=== PATIENT | male | born 1990 | race Two or more races ===

== ENCOUNTER 2016-12-20 21:39 | Emergency (ER) | payer SELFPAY ==
--- NOTE | ~2016-12-20 | EKG ---
PATIENT: VIVEK PRITCHETTER UNIT #: [id number] Ventricular Rate: 98 BPM Atrial Rate: 98 BPM P-R Interval: 152 ms QRS Duration: 74 ms Q-T Interval: 342 ms QTC Calculation(Bezet): 436 ms P Monroe: 66 degrees Calculated R Monroe: 57 degrees Calculated T Monroe: 35 degrees Diagnosis Line: Normal sinus rhythm Diagnosis Line: Normal ECG Diagnosis Line: No previous ECGs available Diagnosis Line: Confirmed by ANTWON VELOZ MD ([id number]) on Diagnosis Line: 12/21/2016 9:05:02 AM INTERPRETING MD: MAGDIEL RODRIGUEZ
--- NOTE | ~2016-12-20 | CR72 ---
[facility] A Service of [facility] [place] RADIOLOGY TEXT RESULTS PATIENT: SHANI PRITCHETT LOCATION: [facility] : 86 UNIT #: [id number] AGE: [address]: Galindo Jordan MD SEX: M ORDER DR: [id number] [facility] [address] [place], [place] [address] [id number] E MR#: [id number] Acc #: [id number] NAME: SHANI PRITCHETT : 1990 SEX: M STUDY DATE/TIME: 12/20/2016 22:34 UNIT: [facility] ROOM: STUDY DESCRIPTION: CR Chest Single View Portable Attending Physician: Galindo Jordan M.D. Ordering Physician: Galindo Jordan M.D. Primary Care Physician: Primary Care Physician No MEDICAL IMAGING REPORT This report is preliminary unless electronic signature is present EXAM Chest x-ray single portable frontal view HISTORY Shortness of air with activity, weakness, history of diabetes. Current symptoms started 12/19/2016. Patient also has a history of hypertension. COMMENT Single frontal portable view of the chest timed 22:34 12/20/2016 is reviewed. There is no acute appearing parenchymal infiltrate or acute congestive failure. The heart size is normal. No pleural effusion or pneumothorax. IMPRESSION No active disease. Dictated by... Amita Steward M.D. THIS IS AN ELECTRONICALLY VERIFIED REPORT Amita Steward M.D. at 12/21/2016 10:38 AM EDIE/glenny TD: 12/21/2016 07:10 JOB #: [id number] MEDICAL IMAGING REPORT Page 1 of 1 COPY
[~2016-12-20 21:39] MED LIST: LEVEMIR100 UNITS/ SUBQ; METFORMIN HCL500 M1 PO; NOVOLOG100 U/ML SUBQ; PRILOSEC20 MG PO
[2016-12-20 22:40] LABS: BASOPHIL% 0.2 % (0-2.5); EOSINOPHIL# 0.1 X10e3 (0-0.7); HEMATOCRIT 45.3 % (38.0-50.0); HEMOGLOBIN 15.5 gm/dL (13.0-16.0); LYMPHOCYTE# 4.4 X10e3 (1.0-3.5); LYMPHOCYTE% 39.3 % (17.0-45.0); MEAN CELL VOLUME 82.9 FL (83-96); MEAN CORPUSCULAR HEMOGLOBIN 28.4 PG (28-34); MEAN CORPUSCULAR HGB CONC 34.2 g/dL (30-36); MEAN PLATELET VOLUME 9.1 FL (6.5-11.5); MONOCYTE# 0.7 X10e3 (0-1.0); MONOCYTE% 5.9 % (3.0-12.0); NEUTROPHIL% 53.6 % (40-75); PLATELET COUNT 258 X10e3 (140-420); RED BLOOD COUNT 5.47 X10e (3.90-5.60); RED CELL DISTRIBUTION WIDTH 12.9 % (11.0-15.5); WHITE BLOOD COUNT 11.1 X10e3 (4.0-10.5)
[2016-12-20 22:41] LABS: DIFF IND NO
[2016-12-20 22:49] LABS: POC - CKMB <1.0 ng/mL (0.0-7.9); POC - TROPONIN <0.05 ng/mL (<=0.05)
[2016-12-20 23:09] LABS: URINE SOURCE CLEAN CATCH
[2016-12-20 23:14] LABS: URINE APPEARANCE CLEAR; URINE BILIRUBIN NEG (NEG); URINE BLOOD 1+ (NEG); URINE COLOR YELLOW; URINE GLUCOSE >1000 MG/DL (NEG); URINE KETONE 1+ (NEG); URINE LEUKOCYTE ESTERASE NEG (NEG); URINE NITRATE NEG (NEG); URINE PROTEIN NEG (NEG); URINE SPECIFIC GRAVITY 1.036 (1.003-1.035); URINE UROBILINOGEN 0.2 MG/DL (NEG)
[2016-12-20 23:17] LABS: URINE BACTERIA AUWI NEG (NEGATIVE); URINE SQUAMOUS EPITHELIAL CELL NONE SEEN /[HPF]; UWBCS1 AUWI 0-2 (0-5)
[2016-12-20 23:18] LABS: CULTURE INDICATED? NO
[2016-12-20 23:23] LABS: ALBUMIN SERUM 4.6 g/dL (3.5-5.0); BILIRUBIN,TOTAL 0.7 mg/dL (0.2-2.0); CALCIUM SERUM 9.5 mg/dL (8.4-10.2); CREATININE SERUM 0.9 mg/dL (0.6-1.4); GLOM FILT RATE Estimated 115.8 mL/min (>60); POTASSIUM 4.1 mmol/L (3.5-5.1); PROTEIN TOTAL SERUM 8.3 g/dL (6.0-8.3)
[2016-12-20 23:24] LABS: BILIRUBIN, DIRECT 0.1 mg/dL (0.0-0.2); BILIRUBIN,INDIRECT 0.6 mg/dL (0.0-0.9)
[2016-12-21 00:59] LABS: POC - CKMB <1.0 ng/mL (0.0-7.9); POC - TROPONIN <0.05 ng/mL (<=0.05)
== END 2016-12-21 02:45 | disposition home or self-care (01) ==
LOC: CED 21:39
PROVIDERS: Emergency Medicine
DX: E11.65 Type 2 diabetes mellitus with hyperglycemia (principal)
CPT/HCPCS: 36415; 71010; 80048; 80076; 81003; 82553; 82947; 84484; 85025; 93005; 96360; 96361; 96372; 99285; J1815